=== PATIENT | male | born 2000 | race Caucasian/White ===

== ENCOUNTER 2020-08-23 10:41 | Outpatient (REF) | payer OTHER, SELFPAY | END 2020-08-23 10:42 | disposition home or self-care (01) | LOC: HO.LAB 10:41 | PROVIDERS: Visit Provider Internal Medicine | DX: Z20.828 Contact with and (suspected) exposure to other viral communicable diseases (principal) | CPT/HCPCS: C9803; U0003 ==

== ENCOUNTER 2021-07-12 07:51 | Outpatient (REF) | payer OTHER, SELFPAY ==
[2021-07-12 09:14] LABS: MANUAL DIFF FLAG NO
[2021-07-12 09:43] LABS: Basophils Absolute Auto 0.1 X10*3/uL (0.0-0.2); Basophils Percent Auto 1.4 % (0-2); Eosinophils Absolute Auto 0.5 X10*3/uL (0.0-0.4); Eosinophils Percent Auto 7.9 % (0-4); Hematocrit 50.2 % (42.0-52.0); Hemoglobin 16.9 g/dl (14.0-18.0); Imm Gran Abs Auto 0.01 X10*3/uL (0.00-0.03); Imm Gran Pct Auto 0.2 % (0.0-0.4); Lymphocytes Absolute Auto 2.2 X10*3/uL (1.2-4.9); Lymphocytes Percent Auto 35.3 % (20-40); Mean Corpuscular HGB Conc 33.7 g/dl (31.0-36.0); Mean Corpuscular Hemoglobin 28.8 pg (27.0-33.0); Mean Corpuscular Volume 85.7 fL (80.0-98.0); Mean Platelet Volume 10.4 fL (9.4-12.4); Monocytes Absolute Auto 0.5 X10*3/uL (0.1-1.2); Monocytes Percent Auto 8.1 % (2-11); Neutrophils Percent Auto 47.1 % (45-73); Platelet Count 241 X10*3/uL (160-400); Red Blood Count 5.86 X10*6/uL (4.60-5.80); Red Cell Distribution Width 12.4 % (11.0-16.0); White Blood Count 6.3 X10*3/uL (4.8-10.8)
[2021-07-12 10:20] LABS: Alanine Aminotransferase 14 U/L (0-40); Albumin Level 4.7 g/dL (3.5-5.0); Alkaline Phosphatase 63 U/L (39-117); Anion Gap 10 (12-20); Aspartate Amino Transferase 17 U/L (5-37); Bilirubin Total 0.9 mg/dL (0.0-1.0); Blood Urea Nitrogen 11 mg/dL (9-16); Calcium 9.9 mg/dL (8.4-10.2); Carbon Dioxide 30 mmol/L (22-29); Chloride 102 mmol/L (96-108); Cholesterol 132 mg/dL; Estimated Glomerular Filt Rate > 60; Glucose Fasting 92 mg/dL (60-99); HDL Cholesterol 57 mg/dL; LDL Cholesterol Calculated 60 mg/dl; Sodium 138 mmol/L (135-145); Total Protein 7.2 g/dL (6.5-8.0); Triglycerides 78 mg/dL
[2021-07-18 12:16] LABS: Vitamin D 25-OH, D2 <4 ng/mL; Vitamin D 25-OH, D3 12 ng/mL; Vitamin D 25-OH, Total 12 ng/mL (30-100)
== END 2021-07-12 07:52 | disposition home or self-care (01) ==
LOC: HO.LAB 07:51
PROVIDERS: Absent Provider Internal Medicine; PCP Internal Medicine; Referring Provider Internal Medicine; Visit Provider Nurse Practitioner Family
DX: Z00.01 Encounter for general adult medical examination with abnormal findings (principal); K21.9 Gastro-esophageal reflux disease without esophagitis; E55.9 Vitamin D deficiency, unspecified
CPT/HCPCS: 36415; 80053; 80061; 82306; 85025; 99212

== ENCOUNTER 2021-08-16 11:45 | Day surgery (SDC) | payer OTHER, SELFPAY ==
--- NOTE | 2021-08-14 13:22 | HO.ANESPROP2 ---
Documented by User: Lori Campbell NP 08/14/21 13:23 HPI - Anesthesia Eval Consult details Narrative: 21yo M for Upper Endoscopy PMFSH Active Problems Active Problems: All Active Problems (Updated 05/30/21 @ 11:37 by Agatha Walsh MD) Chronic GERD (Acute) Positive depression screening (Acute) Vitamin D deficiency (Acute) Encounter for general adult medical examination with abnormal findings (Acute) Past Medical History Medical History (Updated 08/14/21 @ 13:22 by Lori Campbell NP) Chronic GERD Surgical History Surgical History (Updated 07/12/21 @ 08:09 by Jasmyne Pulido) History of esophagogastroduodenoscopy (EGD) Social History Social History Housing: House Patient Tobacco Use Status: Never used Tobacco Second Hand Smoke Exposure: No Use of substances other than those prescribed or required for medical reasons: No Are you DNR?: No Advance Directives: No Advance Directives Information Provided: Yes Advance Directives on File: No Current occupational status: employed Meds Allergies Allergy/AdvReac Type Severity Reaction Status Date / Time No Known Allergies Allergy Verified 07/12/21 08:07 [No Known Allergies*] Exam Exam Date and Time: August 14, 2021 1322 Pertinent Lab Results Pertinent Lab Results: Laboratory Tests 07/12/21 07/12/21 09:12 09:12 WBC 6.3 Hgb 16.9 Hct 50.2 Plt Count 241 Sodium 138 Potassium 4.0 Chloride 102 Carbon Dioxide 30 H BUN 11 Creatinine 1.11 Assessment and Plan Assessment Anesthesia Assessment: Chart Reviewed Documented by User: Navdeep Sheets 08/16/21 13:45 [facility] Past Medical History Medical History (Updated 08/14/21 @ 13:22 by Lori Campbell NP) Chronic GERD Functional capacity: independent ambulation Family History Family history of problems with anesthesia: No Surgical History Surgical History (Updated 07/12/21 @ 08:09 by Jasmyne Pulido) History of esophagogastroduodenoscopy (EGD) History of Problems with Anesthesia: Unobtainable (Never had anesthesia ) Social History Social History Housing: House Patient Tobacco Use Status: Never used Tobacco Second Hand Smoke Exposure: No Use of substances other than those prescribed or required for medical reasons: No Are you DNR?: No Advance Directives: No Advance Directives Information Provided: Yes Advance Directives on File: No Current occupational status: employed Meds Allergies Allergy/AdvReac Type Severity Reaction Status Date / Time No Known Allergies Allergy Verified 07/12/21 08:07 [No Known Allergies*] Exam Airway Mallampati Class: II TM Dist: >3cm Neck ROM: Full Loose/Missing/Broken Teeth: No Heart: rrr Lungs: bl breath sounds Assessment and Plan Final Anesthetic Review Family History of Problems with Anesthesia: No History of Problems with Anesthesia: Unobtainable (Never had anesthesia ) NPO: Yes ASA Class: II Final Preanesthetic Review: Anes Risks/Benef Reviewed Patient Risk: Intermediate Procedure Risk: Intermediate Anesthetic Plan Anesthetic Plan: MAC: Disposition: Standard PACU
[2021-08-16 12:17] VITALS: BMI 16.7
[2021-08-16 12:34] VITALS: BP 109/75; PULSE 87; RESP 16; TEMP 36.6; O2SAT 100
[2021-08-16] MEDS: Lactated Ringers 1,000 ML 100 ML IVCONT (12:35)
--- NOTE | 2021-08-16 13:13 | MHC.SHP ---
Pre-Procedural Eval Section A Date of Service: 08/16/21 Section B Chief Complaint: GERD Details of Present Illness: also associated dysphagia Relevant Family History (Specify if Yes): No Relevant Social History: None Present Medications: see Short Stay Collaborative assessment Medical History: Significant History (Chronic GERD) History of Previous Operations: Relevant previous surgery/procedure and date(s) (EGD) Allergies: Allergies Allergy/AdvReac Type Severity Reaction Status Date / Time No Known Allergies Allergy Verified 07/12/21 08:07 [No Known Allergies*] Review of Systems Sugical H&P ROS: Negative: Constitution, Cardiovascular, Respiratory, Neurological, Psychiatric, Hem-Onc, Allergic/Immunologic, Gastrointestinal, Genitourinary, Musculoskeletal, Integumentary, Endocrine and Eyes/Ears/Nose/Throat Exam Surgical H&P Exam: Normal: HEENT, Normal: Heart, Normal: Lungs, Normal: Extremities, Normal: Abdomen, Normal: Skin and Normal: Neurological Plan Diagnosis/Plan: Unchanged I have reviewed the history and physical and performed a pertinent physical examination on my patient. No changes have occurred unless specified.
--- NOTE | 2021-08-16 13:44 | P.BOP_ITS ---
Brief Operative Note Date of Service: 08/16/21 Pre-op diagnosis: GERD and dysphagia Post-op diagnosis: same Procedure: see op note Surgeon: Mihaela Martinez MD Anesthesia: MAC Was an Metal Rivet Machine Operator used for this Procedure?: No Estimated blood loss (mL): 0 Condition: stable Disposition: PACU
--- NOTE | 2021-08-16 13:45 | W.PM.OPN ---
Operative Note Operative Note Date of Service: 08/16/21 Narrative: Procedure Description: EGD FLEXIBLE TRANSORAL UPPER GASTROINTESTINAL ENDOSCOPY UPPER ENDOSCOPY Consent: Indications for the procedure and potential complications of bleeding, perforation, reaction to medications and missed diagnosis were discussed with the patient and informed consent was obtained. Instrument: Olympus GIF H 190 J mid size upper endoscope Monitoring: Vital signs and clinical assessment, continuous EKG monitoring, Pulse oximetry, Carbon Dioxide monitoring and blood pressure monitoring were done throughout the procedure. Procedure: The patient was placed in the left lateral decubitis position and pre-procedure medications were administered and a bite block was placed. The endoscope was inserted into the mouth and advanced under direct vision to the third part of duodenum. A careful inspection was made as the upper endoscope was withdrawn including a retroflexed examination of the proximal stomach; Findings and interventions are described below. Findings: Larynx:normal Esophagus: GE junction at 42 cm, diaphragm hiatus at 42 cm. The GEJ was boggy and inflammed, bx taken. There was ringing of the mucosa, bx taken from distal and proximal esophagus in separate jars. Balloon dilation done at proximal and distal esophagus both to 17 mm. There was a shallow tea in the upper esophagus and small tear at GEJ. No muscle was involved Stomach: normal. Biopsies were obtained. Grade 2 flap valve on retroflexed examination of the cardia. Duodenum: Mild bulbar duodenitis, bx taken Intervention: Biopsies as noted above, balloon dilation Impression/Findings: esophagitis, maybe EoE duodenitis esophageal stricture PLAN: High dose PPI for 3 months then titrate down, repeat EGD possibly at that time depending on path results magic mouthwash for 1 week can take tylenol if needed soft diet today and avoid carbonated drinks, hot drinks , spices for 4-5 days
[2021-08-16 14:31] VITALS: BP 101/56; PULSE 106; RESP 14; TEMP 36.1; O2SAT 97
[2021-08-16 14:46] VITALS: BP 98/52; PULSE 87; RESP 16; O2SAT 98
[2021-08-16 15:00] VITALS: BP 98/63; PULSE 83; RESP 16; O2SAT 98
[2021-08-16 15:15] VITALS: BP 99/59; PULSE 78; RESP 16; O2SAT 98
[2021-08-16 15:30] VITALS: BP 102/63; PULSE 84; RESP 16; TEMP 36.1; O2SAT 98
[2021-08-16] MEDS: Mag&Al/Sim/Diphenhyd/Lidocaine 10 ML ORAL.SUSP PO (15:42)
== END 2021-08-16 16:13 | disposition home or self-care (01) ==
PROVIDERS: PCP Internal Medicine; Visit Provider Internal Medicine Gastroenterology
PROC: 0DJ08ZZ Inspection of Upper Intestinal Tract, Via Natural or Artificial Opening Endoscopic (ICD-10-PCS; CPT 43235; principal; 2021-08-16 13:20)
DX: K21.9 Gastro-esophageal reflux disease without esophagitis (principal); K20.80 Other esophagitis without bleeding; K22.2 Esophageal obstruction; K29.80 Duodenitis without bleeding; K29.50 Unspecified chronic gastritis without bleeding; K44.9 Diaphragmatic hernia without obstruction or gangrene; Z79.899 Other long term (current) drug therapy
CPT/HCPCS: 43249; 43239; 88305; 88342; C1726; J2250

== ENCOUNTER → 2021-08-28 14:56 | Outpatient (BNVA) | payer OTHER, SELFPAY | PROVIDERS: PCP Internal Medicine; Referring Provider Internal Medicine; Visit Provider Nurse Practitioner Family | DX: K21.9 Gastro-esophageal reflux disease without esophagitis (principal); R13.12 Dysphagia, oropharyngeal phase | CPT/HCPCS: 99212 ==

== ENCOUNTER 2021-10-23 14:34 | Outpatient (REF) | payer OTHER, SELFPAY ==
--- NOTE | ~2021-10-23 | FL_ITS ---
PROCEDURE: MODIFIED BARIUM SWALLOW CLINICAL INFORMATION: Dysphagia. COMPARISON: None TECHNIQUE: Modified barium swallow was performed under lateral fluoroscopy with patient sitting and in presence of speech therapist. FINDINGS: Following oral administration of thin, thick barium and different consistencies of food coated with barium including solid food such as barium-coated cookie there is normal oral mastication with normal propagation of bolus from the oral cavity through the pharynx into esophagus without any evidence of obstruction or narrowing. There is no laryngeal penetration or aspiration. FLUOROSCOPY TIME: 0.7 minutes. DOSE AREA PRODUCT: 0.654 uGy-m2 (microgray-meter squared). FL/FL barium swallow modified IMPRESSION: Unremarkable modified barium swallow exam.
--- NOTE | 2021-10-23 16:22 | MHC.SL.IMP ---
Date of Plan of Treatment: 10/23/21 Onset of Symptoms/Illness: 08/29/21 Date Treatment Started: 10/23/21 Admitting Diagnosis: Chronic GERD Primary Speech & Language Diagnosis: R13.10 Dysphagia Reason for Today's Visit: 41483 Modified Barium Swallow Study Pre-evaluation Dietary Consistencies: Regular Pre-evaluation Liquid Consistency: Thin Pre-evaluation Medication Administration: Whole with Liquid Medical History: Modified Barium Swallow Study Fluoroscopic Evaluation of Swallowing Function CPT Code 57418 Evaluation Year: 2021 Reason for Study: Patient reports ?throat tightness.? Referring Physician: Lakeshia CHAMPAGNE Evaluating Clinician: Amaris Ramirez MA, CCC-BUCKLE WIRE INSERTER Study Number: 1 Patient Name: Benitez Power Status: Outpatient, Ambulatory Age: 21 Gender: Male MEDICAL HISTORY: Year of Onset or Diagnosis: 2021 Comorbidities: Hx chronic GERD Current (pre-evaluation) Intake/Diet: Route: PO Diet Grade: Regular Liquid Consistencies: Thin Pre-Study Functional Oral Intake Scale (FOIS): 7- Total oral intake with no restrictions Pain: None reported at time of study SUBJECTIVE: Patient is a 21 year old male referred for a modified barium swallow study by Lakeshia CHAMPAGNE from Gastroenterology. Patient attended this exam unaccompanied. History includes chronic GERD. Patient described ?throat tightness,? which is ongoing. He previously reported difficulty with sticky foods such as rice and peanut butter. Oral Motor Exam Facial Symmetry: Symmetrical Mouth Occlusion: Normal Oral-Facial Teeth Characteristics: Intact/Normal Oral-Facial Lip Pucker Description: Normal Oral-Facial Smile (Lips) Description: Normal Oral-Facial Puff Cheeks Description: Normal Tongue Size: Normal Tongue Excursion Description: Normal Tongue Range of Movement Description: Normal Tongue Speed of Movement Description: Normal Tongue Strength of Movement (against opposing pressure): Normal Tongue Movement Characteristics: Normal/Absent Is patient able to manage secretions?: Yes Food and Liquid Trials: Oral Impairment: Lip Closure: 0=No labial escape Oral Impairment: Tongue Control During Bolus Hold: 0=Cohesive bolus between tongue to palatal seal Oral Impairment: Bolus Preparation/Mastication: 0=Timely and efficient chewing and mashing Oral Impairment: Bolus Transport/Lingual Motion: 0=Brisk tongue motion Oral Impairment: Oral Residue: 1=Trace residue lining oral structures Oral Impairment:Initiation of Pharyngeal Swallow: 0=Bolus head at posterior angle of ramus (first hyoid excursion) Pharyngeal Impairment: Soft Palate Elevation: 0=No bolus between soft palate (SP)/pharyngeal wall (PW) Pharyngeal Impairment: Laryngeal Elevation: 0=Complete superior movement of thyroid cartilage (see description) Pharyngeal Impairment: Anterior Hyoid Excursion: 0=Complete anterior movement Pharyngeal Impairment: Epiglottic Movement: 0=Complete inversion Pharyngeal Impairment: Laryngeal Vestibular Closure:: 0=Complete: no air/contrast in laryngeal vestibule Pharyngeal Impairment: Pharyngeal Stripping Wave: 0=Present: complete Pharyngeal Impairment: Pharyngeal Contraction: Did not test Pharyngeal Impairment: Pharyngoesophageal Segment Openin=Complete distension and complete duration: no obstruction of flow Pharyngeal Impairment: Tongue Base (TB) Retraction: 0=No contrast between tongue base and posterior pharyngeal wall Pharyngeal Impairment: Pharyngeal Residue: 0=Complete pharyngeal clearance Pharyngeal Impairment: Esophageal Clearance Upright Position: Did not test Impressions and Recommendations Clinical Observations: OBJECTIVE: Time-out: performed at 02:45 Evaluation Start: 02:30; Stop: 02:40 Patient Positioning: Seated 70-90 degrees Viewing Planes: LATERAL ONLY Contrast: MBSImP? Standardized Protocol using commercially prepared, standardized Barium viscosities, including: Varibar? THIN LIQUID (40% w/v, <15 cps) , 1/2 Shortbread Cookie (1 x1 x.25 ) MBSImP ID: [id number] [facility]: Lip closure for intraoral bolus containment resulted in no labial escape. Tongue control during bolus hold maintained a cohesive bolus held between tongue to palate seal. Bolus preparation and mastication resulted in timely and efficient chewing and mashing. Bolus transport/lingual motion was with brisk tongue motion. Oral residue was a trace, lining oral structures. Initiation of the pharyngeal swallow occurred as the bolus head reached the posterior angle of the mandibular ramus. Soft palate elevation resulted in no bolus between the soft palate and the pharyngeal wall. Laryngeal elevation demonstrated complete superior movement of the thyroid cartilage with complete approximation of the arytenoids to the epiglottic petiole. Anterior hyoid excursion demonstrated complete anterior movement. Epiglottic movement resulted in complete inversion. Laryngeal vestibular closure was complete, as indicated by no air or contrast within the laryngeal vestibule at the height of the swallow. Pharyngeal stripping wave was present and complete. Pharyngeal contraction could not be determined due to logistical reasons not related to physiologic impairment. Pharyngoesophageal segment opening was completely distended for complete duration with no obstruction of bolus flow. Tongue base retraction allowed no contrast between the retracted tongue base and the posterior pharyngeal wall. Pharyngeal residue was not present. There was complete pharyngeal clearance. Esophageal clearance in the upright position could not be assessed due to logistical reasons not related to physiologic impairment. Oral Impairment Score: 0 Pharyngeal Impairment Score: 0 (absence of score, component 13) Esophageal Impairment Score: --- (absence of score, component 17) Laryngeal Penetration and Aspiration: Neither penetration nor aspiration was observed in today's study with Cookie, Thin. ASSESSMENT: Clinician Assessment: This exam was conducted by a multidisciplinary team which included speech pathologist, radiologist, and metal wire technician. Patient was seated in optimal upright position at 90 degree angle for lateral view only. Patient trialed the following liquid and solid consistencies: 5 mL thin liquid barium, individual cup sip with bolus hold thin liquid barium, chain sip by cup thin liquid barium, pureed solid (mixture applesauce with barium paste), ground solid (mixture chicken salad with barium paste), regular solid (Coreen Doone cookie coated with barium paste). No interlabial escape. Oral phase characterized by good tongue control and brisk posterior lingual transport of bolus. Timely and efficient mastication with good oral clearance. Timely pharyngeal swallow trigger. No nasopharyngeal reflux. Complete superior movement of thyroid cartilage, complete anterior hyoid excursion, and complete epiglottic inversion. No evidence of aspiration or penetration with liquids and solids. No pharyngeal residue. No obstruction of flow through pharyngoesophageal segment opening. Liquid Intake Recommendation: Thin Liquid Intake Strategies: Unrestricted Dietary Recommendations: Regular Medication Administration: Whole with Liquid Please contact the pharmacy regarding appropriate crushable or liquid drug formulations that are available whenever modified delivery is recommended. Supervision during eating and or drinking: None Needed Recommendation for Speech Therapy: NA:Typical Evaluation PLAN: Intake Recommendations: Route: PO Diet Grade: Regular Liquid Consistencies: Thin Post-Study Functional Oral Intake Scale (FOIS): 7- Total oral intake with no restrictions MBSS was unremarkable. Patient?s swallow deemed to be within functional limits. Recommend continue services with G.I. given history of GERD and recommend possibly ENT consult if deemed medically necessary for complaints of throat tightness. Recommend patient to resume unmodified diet REGULAR solids and THIN liquids. Further ST intervention is no longer warranted. Suggested Referrals: The patient might benefit from a referral to: Gastroenterology, Otolaryngology Therapy Recommendations: Therapy will be discontinued Prognosis for Improvement: The prognosis for the patient to meet nutritional needs by mouth is excellent based on degree of impairment. Clinician - Supplemental, Miscellaneous Communication: It is important to note MBSS objective studies are snapshots in time and Patient function might vary with factors such as time of day or concomitant medical conditions. For this reason, the final treatment plan for this patient should rest with their medical care team. Additional recommendations should be considered with the totality of the Patient in mind. Thank for the opportunity to participate in the care of this patient. If you have any questions about the content of this report, please contact the [facility] at [facility]. Education: Education regarding findings from today's study and plans for therapy were provided to Patient only through Verbal Instruction. Understanding was expressed by the Patient only. Community Service Officer Coordinator Clinician/Clinical Fellow: No Supervisory Statement: N/A Speech Language Pathologist: Amaris Ramirez M.A., CCC-BUCKLE WIRE INSERTER
== END 2021-10-23 14:35 | disposition home or self-care (01) ==
LOC: HO.XRAY 14:34
PROVIDERS: Visit Provider Nurse Practitioner Family
DX: R13.10 Dysphagia, unspecified (principal)
CPT/HCPCS: 74230; 92611

== ENCOUNTER → 2021-10-27 13:50 | Outpatient (BNVA) | payer OTHER, SELFPAY | PROVIDERS: PCP Internal Medicine; Referring Provider Internal Medicine; Visit Provider Nurse Practitioner Family | DX: K21.9 Gastro-esophageal reflux disease without esophagitis (principal); K20.0 Eosinophilic esophagitis | CPT/HCPCS: 99212 ==

== ENCOUNTER → 2022-01-01 14:19 | Outpatient (BNVA) | payer OTHER, SELFPAY | PROVIDERS: PCP Internal Medicine; Referring Provider Internal Medicine; Visit Provider Nurse Practitioner Family | DX: K21.9 Gastro-esophageal reflux disease without esophagitis (principal); K20.0 Eosinophilic esophagitis; E55.9 Vitamin D deficiency, unspecified | CPT/HCPCS: 99212 ==

== ENCOUNTER → 2022-04-02 15:39 | Outpatient (BNVA) | payer OTHER, SELFPAY | PROVIDERS: PCP Internal Medicine; Visit Provider Nurse Practitioner Family | DX: K21.9 Gastro-esophageal reflux disease without esophagitis (principal); K20.0 Eosinophilic esophagitis; R09.89 Other specified symptoms and signs involving the circulatory and respiratory systems; R05.9 Cough, unspecified | CPT/HCPCS: 99212 ==

== ENCOUNTER → 2022-10-03 14:58 | Outpatient (BNVA) | payer OTHER, SELFPAY | PROVIDERS: PCP Internal Medicine; Visit Provider Nurse Practitioner Family | DX: R09.82 Postnasal drip (principal); R09.89 Other specified symptoms and signs involving the circulatory and respiratory systems; J31.0 Chronic rhinitis; K20.0 Eosinophilic esophagitis | CPT/HCPCS: 99212 ==

== ENCOUNTER 2024-07-21 11:17 | Outpatient (AMB) | payer OTHER, SELFPAY ==
[2024-07-21 11:20] VITALS: BP 132/80; PULSE 76; O2SAT 98; BMI 22.6
--- NOTE | 2024-07-21 11:20 | A.OFFVIS_ITS ---
Vital Signs 07/21/24 11:20 Height 6 ft Weight 166 lb 10.711 oz BMI 22.6 BP 132/80 Blood Pressure Location Rt brachial Position Sitting Pulse 76 Pulse Source Pulse Oximeter Pulse Oximetry (%) 98 Oxygen Delivery Method Room Air Intake Visit Reasons: Dysphagia & GERD Intake Note: Relevant Flags or Indicators ? Requires Paint Spraying Machine Operator Helper? Fernadno Marquis presents in office today for a scheduled consultation to re-establish care. Pt has not been seen in the year 2023. Relevant GI Sx as reported per pt? ?Reflux ?Dysphagia - Dyspnea consistently. ?Fecal abnormalities oDiscolored? Mild to moderate BRB. oConstipation ?Abdominal Pain - centralized to the umbilical region. Pt states that it was very sharp but relieved once they had a BM. ?Hx of any recent surgeries? None Paint Spraying Machine Operator Helper Required: No Allergies cat dander Allergy (Severe, Verified 07/21/24 11:21) Anaphylaxis dog dander Allergy (Severe, Verified 07/21/24 11:21) Anaphylaxis shellfish derived Allergy (Mild, Verified 07/21/24 11:21) Anaphylaxis house dust mite Allergy (Unknown, Verified 07/21/24 11:26) Unknown HPI HPI Dysphagia & GERD: Details: LAST VISIT: Throat tightness Patient continues to reports funny feeling in his throat. On exam he does have postnasal drip. Patient has seasonal allergies as well as food allergies and allergy to dust, dogs and cats. I will give him script for Zyrtec. Patient will be referred to director of security. Patient will need to see ENT as well. Call placed to refer office by 1 of our desk officer. Post-nasal drip Postnasal drip. Patient was encouraged to avoid triggers. He knows he is allergic to cats, dust and certain food. Chronic GERD Continue avoiding dietary triggers. Patient denies any epigastric discomfort or acid reflux. Eosinophilic esophagitis Diagnosed with eosinophilic esophagitis. Allergy related. Referral to director of security today. Patient was encouraged to continue avoiding triggers and take Zyrtec on as needed basis. I will see him in 3 months, sooner on as needed basis. Patient is agreeable to this plan and verbalizes understanding of instructions. He was given the opportunity to ask questions and all questions answered. ? Thank you for allowing me to participate in his care Plan Orders Referrals Allergy & Immunology Referral R09.89, R09.82 Medications New cetirizine (Zyrtec) 10 mg PO DAILY PRN 30 tabs 0RF allergy symptoms J31.0 TODAY'S VISIT Patient is here today for follow-up. Patient has not followed up since September of 2022. He continues to have same symptoms. Trouble swallowing sticky food like rice, peanut butter and dry bread. Patient denies any acid reflux, reports sore throat. Patient was referred on previous visits to director of security and ENT specialist. Patient reports that he has not received any phone call for co nsulting appointments. Patient reports that he still lives with his parents and his that has multiple caths. Patient has severe allergy to cats. Most of the time patient stays in his room, reports that cats usually do not go into his room. Patient denies actual reflux. Denies dyspepsia or odynophagia. Patient had endoscopy done in 2020. Currently patient wants to wait to get the endoscopy repeated. Denies any other GI concerning symptoms. [facility] Medical History Eosinophilic esophagitis Chronic GERD Surgical History History of esophagogastroduodenoscopy (EGD) Social History Housing: House Patient Tobacco Use Status: Never used Tobacco e-Cigarette/Vaping Use: Never Used Second Hand Smoke Exposure: No Current occupational status: employed Cognitive needs: No Hearing needs: No Vision needs: Yes Review of Systems Const Denies weight gain and Denies weight loss ENT Reports no additional complaints, Reports dysphagia and Denies odynophagia Card Reports no additional complaints Resp Reports no additional complaints GI Denies abdominal pain, Denies belching, Denies melena, Denies bloating, Denies change in bowel habits, Reports dysphagia, Denies excessive flatus, Denies dyspepsia, Denies heartburn, Denies diarrhea, Denies loose stools, Denies nausea, Denies odynophagia and Denies vomiting Reports no additional complaints Musc Reports no additional complaints Neuro Reports no additional complaints Psych Reports no additional complaints Endo Reports no additional complaints Physical Exam Vital Signs: Last Vital Signs Pulse 76 07/21/24 11:20 BP 132/80 07/21/24 11:20 Pulse Ox 98 07/21/24 11:20 Oxygen Delivery Method Room Air 07/21/24 11:20 BMI result Body Mass Index 22.6 Const General: healthy appearing, no acute distress and well developed Nutritional Appearance: well nourished Orientation/consciousness: patient oriented x3 Resp Effort & Inspection: normal respiratory effort, able to speak in complete sente nces, no tracheal deviation and symmetric chest movement Auscultation: clear to auscultation bilaterally Cardio Rate: regular rate GI Inspection: Yes normal to inspection and No distended Palpation (GI): Soft to palpation, not firm, nontender and No hepatosplenomegaly present Auscultation: normal bowel sounds General: Yes no CVA tenderness Back/Spine/Pelvis Back: no CVA tenderness Skin General skin exam: elasticity normal, turgor normal and dry skin Neuro General: patient oriented x3 Psych Appearance: grossly normal Mental Status: mental status grossly normal Assessment & Plan Assessment & Plan (1) Globus sensation: Code(s): R09.89 - Other specified symptoms and signs involving the circulatory and respiratory systems Category: Medical (2) Chronic GERD: Code(s): K21.9 - Gastro-esophageal reflux disease without esophagitis Category: Medical Plan Patient will start on esomeprazole 40 mg half an hour before breakfast. He was encouraged to get air purifier for his room and stay away from cats. Will have desk officer fax again referrals to both ENT and director of security. Will hold off on doing endoscopy. Patient will return in 3 months for re-evaluation. He will call our office if he will have any GI concerning symptoms. He is agreeable to plan of care and verbalizes understanding of instructions. He was given the opportunity to ask questions and all questions answered. Thank you for allowing me to participate in his care Medications: New esomeprazole magnesium (Nexium) 40 mg PO DAILY 30 caps 5RF K21.9 - Gastro- esophageal reflux disease without esophagitis Coding Level of Care Code Est Pt Level 4 (85047) Complex EM visit Add On G2211 Diagnoses Globus sensation R09.89 Chronic GERD K21.9 Time Spent (min) 40 Comment 25 minutes spent patient additional 15 spent reviewing his records
== END 2024-07-21 11:53 | disposition home or self-care (01) ==
PROVIDERS: PCP Internal Medicine; Visit Provider Nurse Practitioner Family
DX: R09.89 Other specified symptoms and signs involving the circulatory and respiratory systems (principal); K21.9 Gastro-esophageal reflux disease without esophagitis
CPT/HCPCS: 99214

== ENCOUNTER → 2024-07-21 11:17 | Outpatient (BNVA) | payer OTHER, SELFPAY | PROVIDERS: PCP Internal Medicine; Visit Provider Nurse Practitioner Family ==

== ENCOUNTER 2025-04-03 10:40 | Outpatient (AMB) | payer OTHER, SELFPAY ==
[2025-04-03 11:11] VITALS: BP 110/76; PULSE 78; RESP 20; TEMP 37.1; O2SAT 97; BMI 25.6
--- NOTE | 2025-04-03 11:11 | AM.OFFWIN_ITS ---
Intake Vital Signs 04/03/25 11:11 Height 6 ft Weight 189 lb BMI 25.6 BP 110/76 Blood Pressure Location Lt brachial Position Sitting Respiration 20 Pulse 78 Pulse Source Pulse Oximeter Temp 98.8 F Temp Source Oral Pulse Oximetry (%) 97 Oxygen Delivery Method Room Air Intake Visit Reasons: EP-Rectal Bleeding Intake Note: Pt is here today for a walk in visit. Pt states that he noticed blood on the toilet paper after having bowel movemment. Pt states that he has been having trouble with constipation. Patient Tobacco Use Status: Never used Tobacco Allergies cat dander Allergy (Severe, Verified 04/03/25 11:15) Anaphylaxis dog dander Allergy (Severe, Verified 04/03/25 11:15) Anaphylaxis shellfish derived Allergy (Mild, Verified 04/03/25 11:15) Anaphylaxis house dust mite Allergy (Unknown, Verified 04/03/25 11:15) Unknown HPI EP-Rectal Bleeding HPI Details Patient is a 24-year-old male with a history of GERD as well as eosinophilic esophagitis, who comes to the walk-in clinic complaining of few drops of rectal bleeding after bowel movements for the last few weeks. Has been having constipation recently, but denies straining excessively or pain with defecation. No obvious blood in the stool, (coffee-grounds or BRB), but a few drops on the TP with wiping. He brings in toilet paper with a scant amount of apparent blood. 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 He also admits to fast food intake for the most part, with very little fruit and vegetable intake, and not much water, in diet. He denies that he has had any issues with constipation or rectal bleeding in the past. No workup for inflammatory bowel diseases per patient. He denies weakness or dizziness, fatigue, SOB, nausea vomiting or diarrhea, fever or chills, abdominal pain, rectal pain or pain with defecation, or other significant associated symptoms. [facility] Medical History Eosinophilic esophagitis Chronic GERD Surgical History History of esophagogastroduodenoscopy (EGD) Social History (Reviewed 07/21/24 @ 11:20 by RAI Duenas Housing: House Patient Tobacco Use Status: Never used Tobacco e-Cigarette/Vaping Use: Never Used Second Hand Smoke Exposure: No Current occupational status: employed Cognitive needs: No Hearing needs: No Vision needs: Yes Physical Exam Vital Signs: Last Vital Signs Temp 98.8 F 04/03/25 11:11 Pulse 78 04/03/25 11:11 Resp 20 04/03/25 11:11 BP 110/76 04/03/25 11:11 Pulse Ox 97 04/03/25 11:11 Oxygen Delivery Method Room Air 04/03/25 11:11 BMI result Body Mass Index 25.6 Const General: cooperative, healthy appearing, comfortable, no acute distress, alert, awake, Physically active and well groomed; No anxious, diaphoretic, ill appearing, intoxicated appearing, poor hygiene or tired appearing Nutritional Appearance: average body habitus Limitations: no limitations Resp Effort & Inspection: normal respiratory effort Cardio Rate: regular rate GI Inspection: Yes normal to inspection, No abdominal wall ecchymosis, No Abdominal wall edema, Yes distended and No Abdominal panniculus present Palpation (GI): Soft to palpation, nontender, no guarding, not rigid, No hepatosplenomegaly present, no masses and No Rebound tenderness present Auscultation: normal bowel sounds Rectal Exam - Male: Yes visual inspection normal, Yes normal sphincter tone, No External hemorrhoid(s) present, No Internal hemorrhoid(s) present, No Rectal prolapse, No Lesions present (GI), No Fistula present (GI), No Anal fissure(s) present, No hemorrhoids and No tenderness Skin Other: Good color, warm and dry Psych Appearance: grossly normal Mental Status: mental status grossly normal Speech and movement: Normal speech and movement present Affect: normal affect Attitude: cooperative Thought process: Normal thought process present Insight: Good insight present (Psych) Judgement: Good judgement present (Psych) Assessment & Plan Assessment & Plan (1) Painless rectal bleeding: Code(s): K62.5 - Hemorrhage of anus and rectum Plan Patient is a 24-year-old male comes to the walk-in clinic complaining of few drops of rectal bleeding after bowel movements for the last few weeks, associated with poor diet/water intake and sedentary lifestyle.He is in no apparent distress with stable vitals om exam, a non surgical abdomen and rectal exam unremarkable with no visible external palpable and no internal hemorrhoids on exam, visible lesions or fissures or fistulas. Guaiac deffered as blood was visualized on the TP. As he does have an inflammatory diagnosis of his upper GI tract, it is possible that there is an underlying inflammatory bowel disease etiology. Workup for this issue is limited in a walk-in visit, and I advised that he follow up with his primary care Dr. Walsh here in this office, in the next 2 weeks if symptoms are persisting. In the meantime,we discussed lifestyle changes such as walking a few times a day, getting adequate fiber in his diet including fruits and vegetables, cutting significantly down on fast food, and increasing water intake. He knows to go to the emergency department with worrisome symptoms. Coding Level of Care Code Est Pt Level 4 (46117) Diagnoses Painless rectal bleeding K62.5
== END 2025-04-03 12:20 | disposition home or self-care (01) ==
LOC: HO.HMCWIC 10:40
PROVIDERS: PCP Internal Medicine; Visit Provider Physician Assistant Medical
DX: K62.5 Hemorrhage of anus and rectum (principal)